=== PATIENT | female | born 2000 | race American Indian/Alaskan Native ===

== ENCOUNTER 2019-08-08 01:16 | Outpatient (CLI) | payer OTHER ==
[2019-08-08 01:42] VITALS: BP 128/73
[2019-08-08] MEDS ORDERED: FAMOTIDINE 20 MG TAB PO ONE (02:43)
== END 2019-08-08 02:48 | disposition home or self-care (01) ==
LOC: TRG 01:16 → APU 01:18 → TRG 02:48
PROVIDERS: ATTEND Obstetrics & Gynecology
DX: O26.893 Other specified pregnancy related conditions, third trimester (principal); R10.9 Unspecified abdominal pain; Z3A.35 35 weeks gestation of pregnancy
CPT/HCPCS: 59025

== ENCOUNTER 2019-08-31 07:31 | Inpatient (IN) | payer OTHER ==
[2019-08-31] MEDS ORDERED: ONDANSETRON 4 MG/2 ML INJ IV PRN (08:15)
[2019-08-31] MEDS ORDERED: AMPICILLIN/NS 2 GM/100 ML 2 GM/100 ML BAG IV ONE (08:15)
[2019-08-31] MEDS ORDERED: LIDOCAINE (2%) 20 MG/1 ML VIAL 20 ML MDV INFILTRATI NR (08:15)
[2019-08-31] MEDS ORDERED: fentaNYL 100 MCG/2 ML INJ IV PRN (08:15)
[2019-08-31] MEDS ORDERED: TERBUTALINE 1 MG/1 ML INJ SUB-Q PRN (08:15)
[2019-08-31] MEDS ORDERED: ePHEDrine SULFATE 50 MG/1 ML INJ IV PRN ×2 (08:15→11:37)
--- NOTE | 2019-08-31 08:21 | History and Physical Report ---
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") Past Surgical History: Negative Past Surgical History Family History Summary: Other Family Member - Has No Family History of Stomach Cancer - Entered On: 06/17/2019 Other Family Member - Has No Family History of Spontaneous DVT-PE - Entered On: 06/17/2019 Other Family Member - Has No Family History of Small Bowel Cancer - Entered On: 06/17/2019 Other Family Member - Has No Family History of Pancreatic Cancer - Entered On: 06/17/2019 Other Family Member - Has No Family History of Ovarvian Cancer - Entered On: 06/17/2019 Other Family Member - Has No Family History of Kidney/Urinary Tract Cancer - Entered On: 06/17/2019 Other Family Member - Has No Family History of Colon Cancer - Entered On: 06/17/2019 Other Family Member - Has No Family History of Breast Cancer - Entered On: 06/16 Other Family Member - Has No Family History of Brain Cancer - Entered On: 06/17/2019 Other Family Member - Has No Family History of Biliary Tract Cancer - Entered On: 06/17/2019 Social History: Patient is single Smoking History: Patient has never smoked. 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 Infection History Hx of STD: none Personal hx. of genital herpes: no Partner hx. of genital herpes: no Rash, Viral, or Febrile illness since last LMP? no Varicella/Chicken Pox Status: Previous Disease TB Risk: no Genetic History Congenital Heart Defect: Mom: yes Dad: no Comments: ? hole in her heart that closed spontaneously" her brother as well Viktor Disease: Mom: no Dad: no Thalassemia Mom: no Dad: no Neural Tube Defect Mom: no Dad: no Down's Syndrome Mom: yes Dad: no Comments: 2nd cousin Aristides-Sachs Mom: no Dad: no Sickle Cell Disease/Trait Mom: no Dad: no Hemophilia Mom: no Dad: no Muscular Dystrophy Mom: no Dad: no Cystic Fibrosis Mom: no Dad: no Niko Chorea Mom: no Dad: no Mental Retardation Mom: no Dad: no Fragile X Mom: no Dad: no Other Genetic/Chromosomal Disorder Mom: no Dad: no Child w/other defect Mom: no Dad: no Enviromental Exposures Enviromental Exposures Reviewed Xray Exposure: no Medication, drug, or alcohol use since LMP: no Chemical/Other Exposure: no Exposure to Cat Liter: no Hx of Parvovirus (Fifth Disease): no Occupational Exposure to Children: none Comments: unemployed Active Medications (reviewed today): PLUS 27-1 MG ORAL TABLET ( VIT-FE FUMARATE-FA) 1 po daily Current Allergies (reviewed today): No known allergies Past History Past Medical History: other (see HPI) Past Surgical History: other (see HPI) RISK SPECIALIST History: other (see HPI) Family/Genetic History: other (see HPI) - Obstetrical History Expected Date of Delivery: 09/11/19 Actual Gestation: 38 Week(s) 3 Day(s) : 2 Para: 1 Hx # Term Pregnancies: 0 Number of Pregnancies: 1 Spontaneous Abortions: 0 Induced : 0 Number of Living Children: 1 Medications and Allergies Allergies Allergy/AdvReac Type Severity Reaction Status Date / Time No Known Allergies Allergy Unverified 08/08/19 01:39 Active Meds: Active Medications Ephedrine Sulfate (Ephedrine Sulfate) 10 mg IV Q2M PRN PRN Reason: Hypotension Fentanyl (Sublimaze) 100 mcg IV Q2H PRN PRN Reason: Pain,Severe (7-10) LABOR PAIN Oxytocin/Sodium Chloride (Pitocin/Ns 20 Unit/1000ml Drip) 20 units in 1,000 mls @ 125 mls/hr IV DIRECT KENJI Lactated Ringer's (Lactated Ringers) 1,000 mls @ 125 mls/hr IV DIRECT KENJI Ampicillin Sodium (Ampicillin/Ns 2 Gm/100 Ml) 2 gm in 100 mls @ 100 mls/hr IV ONCE ONE; Protocol Stop: 08/31/19 09:14 Ampicillin Sodium (Ampicillin/Ns 1 Gm/50 Ml) 1 gm in 50 mls @ 100 mls/hr IV Q4HR KENJI; Protocol Lidocaine (Xylocaine 2%) 20 ml INFILTRATI ONCE ONE Stop: 08/31/19 08:16 Mineral Oil (Mineral Oil) 30 ml PO QHS PRN PRN Reason: Constipation Ondansetron HCl (Zofran) 4 mg IV Q8H PRN PRN Reason: Nausea And Vomiting Terbutaline Sulfate (Brethine) 0.25 mg SUB-Q ONCE PRN PRN Reason: Hyperstimulation/Hypertonicity Review of Systems All systems: negative - Vital Signs Vital signs: Vital Signs Pulse BP 87 131/87 08/31/19 07:56 08/31/19 07:56 Temp Pulse Resp BP Pulse Ox 99 H 134/73 99 08/31/19 08:14 08/31/19 08:14 08/31/19 08:14 - Physical Exam Breasts: Positive: normal Cardiovascular: Regular rate Lungs: Positive: Normal air movement Abdomen: Positive: normal appearance, soft Genitourinary (Female): Positive: normal external genitalia, normal perenium Vulva: both: normal Vagina: Positive: normal moisture - Obstetrical FHR: category 1 Uterine Contraction Monitor Mode: External Cervical Dilatation: 5 (per engagement mgr) Results All other labs normal. Assessment and Plan 19y/o @ 38+3 weeks, patient has not been seen in office since 33 weeks. GBS unknown so will treat with Ampicillin. Pt arrived in active labor 5cms. Admission orders in EMR. Pt's previous del was @ 32 weeks for IUGR and Pre-e. this , pt had 3 visits with our office starting @ 27WKS. - Patient Problems (1) 38 weeks gestation of Current Visit: Yes Status: Acute (2) Active labor at term Current Visit: Yes Status: Acute (3) Limited care in third trimester Current Visit: Yes Status: Acute (4) GBS screening not performed Current Visit: Yes Status: Acute Plan to address problem: ampicillin q4hrs until delivery
[2019-08-31] MEDS: LACTATED RINGERS 1,000 ML IV SCH ×2 (08:35→12:34)
[2019-08-31 08:43] LABS: Hematocrit 35.3 % (30.3-42.9); Mean Corpuscular HGB Conc 34 % (30-34); Mean Corpuscular Volume 84 fl (79-97); Platelet Count 205 K/mm3 (140-440); Red Cell Distribution Width 14.7 % (13.2-15.2)
[2019-08-31] MEDS ORDERED: OXYTOCIN 20 UNIT/1000ML DRIP 20 UNITS/1,000 ML BAG IV SCH ×2 (09:00→18:11)
[2019-08-31] MEDS ORDERED: OXYTOCIN DRIP 30,000 MILLIUNITS/500 ML BAG IV ONE ×2 (11:09→11:20)
--- NOTE | 2019-08-31 11:20 | Progress Note ---
Assessment and Plan no significant change in SVE since last exam, patient reports feeling pressure with ctx, difficult to monitor ctx on toco d/t patient's movement during ctx. Encouraged relaxation, options for epidural and/or IV sedation. will start pitocin for augmentation. - Patient Problems (1) 38 weeks gestation of Current Visit: Yes Status: Acute (2) Active labor at term Current Visit: Yes Status: Acute (3) Limited care in third trimester Current Visit: Yes Status: Acute (4) GBS screening not performed Current Visit: Yes Status: Acute Plan to address problem: ampicillin q4hrs until delivery Subjective - Subjective Date of service: 08/31/19 Principal diagnosis: Laboring Interval history: LMP: 09/11/2019 VITAL SIGNS: Patient Profile: 18 Years Old Female LMP: 12/05/2018 Height: 70 inches Weight: 207 pounds BMI: 29.8 BP sittin / 82 Past History : 2 Premature Births: 1 Living Children: 1 # 1 Delivery date: 10/08/2017 Weeks Gestation: 32 Delivery type: Delivery location: [place] Sex: Female weight: 2-8 Comments: IOL,Preeclampsia, IUGR 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") Past Surgical History: Negative Past Surgical History Family History Summary: Other Family Member - Has No Family History of Stomach Cancer - Entered On: 06/17/2019 Other Family Member - Has No Family History of Spontaneous DVT-PE - Entered On: 06/17/2019 Other Family Member - Has No Family History of Small Bowel Cancer - Entered On: 06/17/2019 Other Family Member - Has No Family History of Pancreatic Cancer - Entered On: 06/17/2019 Other Family Member - Has No Family History of Ovarvian Cancer - Entered On: 06/17/2019 Other Family Member - Has No Family History of Kidney/Urinary Tract Cancer - Entered On: 06/17/2019 Other Family Member - Has No Family History of Colon Cancer - Entered On: 06/17/2019 Other Family Member - Has No Family History of Breast Cancer - Entered On: 06/17/2019 Other Family Member - Has No Family History of Brain Cancer - Entered On: Other Family Member - Has No Family History of Biliary Tract Cancer - Entered On: 06/17/2019 Social History: Patient is single Smoking History: Patient has never smoked. 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 Infection History Hx of STD: none Personal hx. of genital herpes: no Partner hx. of genital herpes: no Rash, Viral, or Febrile illness since last LMP? no Varicella/Chicken Pox Status: Previous Disease TB Risk: no Genetic History Congenital Heart Defect: Mom: yes Dad: no Comments: ? hole in her heart that closed spontaneously" her brother as well Viktor Disease: Mom: no Dad: no Thalassemia Mom: no Dad: no Neural Tube Defect Mom: no Dad: no Down's Syndrome Mom: yes Dad: no Comments: 2nd cousin Aristides-Sachs Mom: no Dad: no Sickle Cell Disease/Trait Mom: no Dad: no Hemophilia Mom: no Dad: no Muscular Dystrophy Mom: no Dad: no Cystic Fibrosis Mom: no Dad: no Niko Chorea Mom: no Dad: no Mental Retardation Mom: no Dad: no Fragile X Mom: no Dad: no Other Genetic/Chromosomal Disorder Mom: no Dad: no Child w/other defect Mom: no Dad: no Enviromental Exposures Enviromental Exposures Reviewed Xray Exposure: no Medication, drug, or alcohol use since LMP: no Chemical/Other Exposure: no Exposure to Cat Liter: no Hx of Parvovirus (Fifth Disease): no Occupational Exposure to Children: none Comments: unemployed Active Medications (reviewed today): PLUS 27-1 MG ORAL TABLET ( VIT-FE FUMARATE-FA) 1 po daily Current Allergies (reviewed today): No known allergies Patient reports: loss of fluid, vaginal bleeding, contractions, other (rectal pressure) Objective - Vital Signs Vital Signs: Vital Signs - 12hr 08/31/19 08/31/19 08/31/19 07:56 08:14 08:15 Temperature 97.8 F Pulse Rate 87 99 H Respiratory 18 Rate Blood Pressure 131/87 134/73 O2 Sat by Pulse 99 Oximetry 08/31/19 08/31/19 08/31/19 08:19 08:25 08:30 Temperature Pulse Rate 89 85 83 Respiratory Rate Blood Pressure O2 Sat by Pulse 97 99 99 Oximetry 08/31/19 08/31/19 08/31/19 08:34 08:35 08:40 Temperature Pulse Rate 97 H 90 87 Respiratory Rate Blood Pressure O2 Sat by Pulse 94 96 98 Oximetry 08/31/19 08/31/19 08/31/19 08:45 09:24 09:29 Temperature Pulse Rate 74 92 H 94 H Respiratory Rate Blood Pressure 142/83 O2 Sat by Pulse 98 98 98 Oximetry 08/31/19 08/31/19 08/31/19 09:34 09:39 09:44 Temperature Pulse Rate 90 87 83 Respiratory Rate Blood Pressure O2 Sat by Pulse 96 97 96 Oximetry - Exam Breasts: normal Cardiovascular: Regular rate Lungs: Clear to auscultation, Normal air movement Abdomen: Present: normal appearance, soft Vulva: both: normal Uterus: Present: normal, fundal height above umbilicus FHR: category 1 Uterine Contraction Monitor Mode: External Cervical Dilatation: 5.5 Cervical Effacement Percentage: 80 station: -1 Uterine Contraction Pattern: Regular Uterine Tone Measurement Phase: Contraction Uterine Contraction Intensity: Moderate - Labs Labs: Laboratory Results - last 24 hr 08/31/19 08/31/19 08:10 08:10 WBC 10.9 RBC 4.20 Hgb 12.0 Hct 35.3 MCV 84 MCH 29 MCHC 34 RDW 14.7 Plt Count 205 Blood Type A POSITIVE Antibody Screen Negative
[2019-08-31] MEDS ORDERED: NALOXONE 2 MG/2 ML INJ IV PRN (11:37)
--- NOTE | 2019-08-31 11:38 | Anesthesia Consultation ---
Anesthesia Consult and Med Hx Date of service: 08/31/19 - Airway Anesthetic Teeth Evaluation: Good ROM Head & Neck: Adequate Mental/Hyoid Distance: Adequate Mallampati Class: Class II Intubation Access Assessment: Probably Good - Pulmonary Exam CTA: Yes - Cardiac Exam Cardiac Exam: RRR - Pre-Operative Health Status ASA Pre-Surgery Classification: ASA2 Proposed Anesthetic Plan: Epidural - Pulmonary Hx Asthma: Yes (uses albuterol inhaler prn) COPD: No Hx Pneumonia: No - Cardiovascular System Hx Hypertension: No - Central Nervous System Hx Seizures: No Hx Psychiatric Problems: No - Endocrine Hx Renal Disease: Yes (pelvic kidney) Hx End Stage Renal Disease: No Hx Hypothyroidism: No Hx Hyperthyroidism: No - Hematic Hx Anemia: No Hx Sickle Cell Disease: No - Other Systems Hx Alcohol Use: No
[2019-08-31] MEDS ORDERED: DEXMEDETOMIDINE 200 MCG/2 ML VIAL IV ONE (11:42)
[2019-08-31] MEDS ORDERED: fentaNYL-BUPIV 2 MCG/ML-0.125% 200 MCG/100 ML BAG EPIDURAL SCH (12:00)
--- NOTE | 2019-08-31 12:00 | Progress Note ---
Labor Epidural - Labor Epidural Start Time: 11:46 Stop Time: 11:51 Performed by:: SOPHIA GOMEZ Procedure: Patient is requesting epidural for labor pain. H&P, and labs reviewed. Procedure explained, questions answered, consent obtained. Patient in sitting position with blood pressure cuff and pulse ox on and working. Timeout performed immediately before start of procedure. Sterile betadine prep/drape. 3 mL 1% lidocaine skin wheal at L[3]-L[4]. 18-gauge Touhy epidural needle advanced to [id number] with saline at [7] cm. 27-gauge spinal needle advanced until clear, free-flowing CSF. Intrathecal dexmedetomidine 5 mcg administered and needle removed. Epidural catheter advanced to [12] cm, negative aspiration for blood and csf, negative test dose 3 ml 1.5% lidocaine with epinephrine. Sterile steri-strips and tegaderm applied, followed by tape reinforcement. Patient tolerated procedure well.
[2019-08-31] MEDS ORDERED: AMPICILLIN/NS 1 GM/50 ML 1 GM/50 ML BAG IV SCH (12:16)
[2019-08-31] MEDS ORDERED: MINERAL OIL 30 ML ORAL LIQD ONE (15:45)
--- NOTE | 2019-08-31 16:24 | Procedure Note ---
OB Delivery Note - Delivery Date of Delivery: 08/31/19 ( male) Applique Cutter: ENMA GEORGES Estimated blood loss: 300cc - Vaginal Delivery presentation: vertex Delivery position: OA Intrapartum events: none Delivery induction: none Delivery augmentation: pitocin Delivery monitor: external FHT, external uterine Route of delivery: Delivery placenta: spontaneous Delivery cord: 3 umbilical vessels Episiotomy: none Delivery laceration: none Anesthesia: epidural Delivery comments: male del over intact perineum, placed skin to skin on mother's abdomen. 3 vessel cord clamped and cut after cessation of pulsation. placenta del intact and complete. no lacerations to repair. EBL 300. 9/9, wt 7#4oz. mother and LDR stable. all counts correct. - A at 1 minute: 9 at 5 minutes: 9 Gender: Male (7#4)
[2019-08-31] MEDS ORDERED: PROMETHAZINE 25 MG TAB PO PRN (18:11)
[2019-08-31] MEDS ORDERED: diphenhydrAMINE 25 MG CAP PO PRN (18:11)
[2019-08-31] MEDS ORDERED: LANOLIN/ZINC/DIMETHICONE (LANSINOH) 7 GM TP PRN (18:11)
[2019-08-31] MEDS ORDERED: ACETAMINOPHEN 325 MG TAB PO PRN (18:11)
[2019-08-31] MEDS ORDERED: WITCH HAZEL/ GLYCERIN PAD TP PRN (18:11)
[2019-08-31] MEDS ORDERED: MAGNESIUM HYDROXIDE (MOM) ORAL LIQD UDC PO PRN (18:11)
[2019-08-31] MEDS ORDERED: BENZOCAINE/MENTHOL 20/0.5% TOP SPRAY 56 GM TP PRN (18:11)
[2019-08-31] MEDS: IBUPROFEN 800 MG TAB PO SCH (18:25)
[2019-08-31] MEDS ORDERED: MINERAL OIL 30 ML ORAL LIQD PO PRN (22:00)
[2019-08-31] MEDS: FERROUS SULFATE 325 MG TAB PO SCH (22:47)
[2019-09-01 04:10] LABS: Hematocrit 32.1 % (30.3-42.9); Hemoglobin 10.9 gm/dl (10.1-14.3)
[2019-09-01] MEDS: IBUPROFEN 800 MG TAB PO SCH ×4 (05:03→23:33)
[2019-09-01] MEDS ORDERED: DIPHtheria,PERTUSSIS(ACELL),TETANUS VACCINE/PF 0.5 ML VIAL IM ONE (06:00)
--- NOTE | 2019-09-01 06:40 | Discharge Summary ---
Providers - Providers Date of Admission: 08/31/19 07:47 Date of discharge: 09/01/19 (pt desires d/c; pt is aware it is contingent on NB's d/c) Attending physician: MARTINEZ BRYANT Primary care physician: MARTINEZ BRYNAT Hospitalization Reason for admission: active labor Delivery: Episiotomy: none Laceration: none Other procedures: none complications: none Discharge diagnosis: IUP at term delivered [place] baby: male Hospital course: uncomplicated vaginal delivery Pt resting. NB sleeping VSS No c/o TYLER, blurred vision, chest pain. H&H No s/sx of anemia. Doing well s/p vag del. P: d/c today if NB can be d/c. Pt is unsure of what BC she will use. Instructions for PP care and Circ given to pt. Condition at discharge: Good Disposition: DC-01 TO HOME OR SELFCARE - Discharge Diagnoses (1) Spontaneous vaginal delivery Status: Acute Comment: RTO 4 weeks PP care Plan - Provider Discharge Summary Activity: routine, no sex for 6 weeks, no heavy lifting 4 weeks, no strenuous exercise Diet: routine Instructions: routine Additional instructions: [] Smoking cessation referral if applicable(refer to patient education folder for contact #) [] Refer to [facility] Booklet Call your doctor immediately for: * Fever > 100.5 * Heavy vaginal bleeding ( >1 pad per hour) * Severe persistent headache * Shortness of breath * Reddened, hot, painful area to leg or breast * Drainage or odor from incision. * Keep incision clean and dry at all times and follow doctor's instructions regarding bathing/showering - Follow up plan Follow up: MARTINEZ BRYANT MD [Primary Care Provider] - 7 Days (Congratulations! Please call [phone] to schedule your appointment in 4 weeks and your son's circumcision in 1 week. Bring the EMLA cream with you to his visit. Do NOT use at home. Motrin/ibuprofen for cramping pain. Call with any concerns.)
--- NOTE | 2019-09-01 09:21 | Post Anesthesia Evaluation ---
- Post Anesthesia Evaluation Patient Participated: Yes Airway Patent: Yes Stable Respiratory Function: Yes Nausea/Vomiting: No Temp > 96.8F: Yes Pain Manageable: Yes Adequeate Hydration: Yes Anesthesia Complications: No Block Receding Appropriately: Yes Patient on Ventilator: No
[2019-09-01] MEDS: PRENATAL VIT27-FE FUMARATE-FOLIC ACID VIT TAB PO SCH (10:18)
[2019-09-01] MEDS: FERROUS SULFATE 325 MG TAB PO SCH ×2 (10:18→23:32)
[2019-09-01 15:27] LABS: Alanine Aminotransferase 11 units/L (7-56); Albumin 3.1 g/dL (3.9-5); BUN/Creatinine Ratio 25; Blood Urea Nitrogen 10 mg/dL (7-17); Calcium 8.7 mg/dL (8.4-10.2); Hemolysis Index 5; Uric Acid 3.7 mg/dL (3.5-7.6)
[2019-09-01 16:39] LABS: Bilirubin,Urine NEG (Negative); Blood,Urine LG (Negative); Color,Urine Yellow (Yellow); Mucus,Urine 1+ /HPF; Protein,Urine <15 mg/dL mg/dL (Negative); Urobilinogen,Urine < 2.0 mg/dL (<2.0)
[2019-09-02] MEDS: IBUPROFEN 800 MG TAB PO SCH ×3 (05:20→17:21)
[2019-09-02] MEDS: FERROUS SULFATE 325 MG TAB PO SCH ×2 (10:26→22:00)
[2019-09-02] MEDS: PRENATAL VIT27-FE FUMARATE-FOLIC ACID VIT TAB PO SCH (10:27)
[2019-09-03] MEDS: IBUPROFEN 800 MG TAB PO SCH ×3 (06:21→12:58)
[2019-09-03] MEDS: PRENATAL VIT27-FE FUMARATE-FOLIC ACID VIT TAB PO SCH (12:56)
[2019-09-03] MEDS: FERROUS SULFATE 325 MG TAB PO SCH (12:56)
[2019-09-03 14:15] VITALS: BP 140/75
== END 2019-09-03 15:10 | disposition home or self-care (01) | DRG 775 ==
LOC: TRG 07:31 → APU 07:33 → TRG 07:47 → LD 07:47 → OB 18:07
PROVIDERS: ADMIT Obstetrics & Gynecology; ATTEND Obstetrics & Gynecology
PROC: 10E0XZZ Delivery of Products of Conception, External Approach (ICD-10-PCS; principal; 2019-08-31)
PROC: 3E0R3BZ Introduction of Anesthetic Agent into Spinal Canal, Percutaneous Approach (ICD-10-PCS; 2019-08-31)
PROC: 00HU33Z Insertion of Infusion Device into Spinal Canal, Percutaneous Approach (ICD-10-PCS; 2019-08-31)
PROC: 3E0234Z Introduction of Serum, Toxoid and Vaccine into Muscle, Percutaneous Approach (ICD-10-PCS; 2019-09-01)
DX: O99.52 Diseases of the respiratory system complicating childbirth (principal); J45.909 Unspecified asthma, uncomplicated; Z37.0 Single live birth; Z3A.38 38 weeks gestation of pregnancy; Z23 Encounter for immunization
CPT/HCPCS: 36415; 80053; 81001; 84550; 85014; 85018; 85027; 86592; 86850; 86900; 86901; 87086; G0378; J0290; J2590; J3490; J7120